=== PATIENT | male | born 1985 | race Caucasian/White ===

== ENCOUNTER 2021-11-21 01:39 | Inpatient (IN) | payer OTHER ==
[~2021-11-21] VITALS: Ht 177.8 cm; Wt 77.5 kg
[2021-11-21 02:19] LABS: HEMOGLOBIN 12.3 gm/dl (14.0-17.5); RED BLOOD COUNT 4.18 M/UL (4.20-5.50); WHITE BLOOD COUNT 8.3 K/UL (4.5-11.0)
[2021-11-21 02:41] LABS: BUN/CREATININE RATIO 13 (0-10)
[2021-11-21 10:41] LABS: HEMOGLOBIN 13.3 gm/dl (14.0-17.5); RED BLOOD COUNT 4.56 M/UL (4.20-5.50)
[2021-11-21 10:42] LABS: WHITE BLOOD COUNT 11.5 K/UL (4.5-11.0)
[2021-11-21 11:16] LABS: BUN/CREATININE RATIO 23 (0-10)
[2021-11-22 05:45] LABS: HEMOGLOBIN 13.4 gm/dl (14.0-17.5); RED BLOOD COUNT 4.53 M/UL (4.20-5.50)
[2021-11-22 06:25] LABS: BUN/CREATININE RATIO 13 (0-10)
[2021-11-22 08:14] LABS: HBSAG SCREEN Negative (Negative); HCV AB <0.1 (0.0-0.9); HEP B CORE AB, TOT Negative (Negative)
[2021-11-22 16:54] LABS: BUN/CREATININE RATIO 8 (0-10)
[2021-11-22 22:43] LABS: BUN/CREATININE RATIO 11 (0-10)
[2021-11-23 05:09] LABS: HEMOGLOBIN 13.8 gm/dl (14.0-17.5); RED BLOOD COUNT 4.69 M/UL (4.20-5.50)
[2021-11-23 05:12] LABS: WHITE BLOOD COUNT 15.3 K/UL (4.5-11.0)
[2021-11-23 05:42] LABS: BUN/CREATININE RATIO 23 (0-10)
[2021-11-24 04:47] LABS: HEMOGLOBIN 15.3 gm/dl (14.0-17.5); RED BLOOD COUNT 5.14 M/UL (4.20-5.50)
[2021-11-24 05:09] LABS: BUN/CREATININE RATIO 31 (0-10)
[2021-11-25 04:45] LABS: HEMOGLOBIN 12.6 gm/dl (14.0-17.5); RED BLOOD COUNT 4.35 M/UL (4.20-5.50); WHITE BLOOD COUNT 13.6 K/UL (4.5-11.0)
[2021-11-25 05:16] LABS: BUN/CREATININE RATIO 32 (0-10)
[2021-11-25 05:23] LABS: HEMOGLOBIN 12.7 gm/dl (14.0-17.5); RED BLOOD COUNT 4.34 M/UL (4.20-5.50); WHITE BLOOD COUNT 14.3 K/UL (4.5-11.0)
[2021-11-25 05:37] LABS: BUN/CREATININE RATIO 33 (0-10); GAMMA GLUTAMYL TRANSPEPTIDASE 160 U/L (7-64)
[2021-11-25 09:33] LABS: HEMOGLOBIN 12.4 gm/dl (14.0-17.5); RED BLOOD COUNT 4.24 M/UL (4.20-5.50); WHITE BLOOD COUNT 14.2 K/UL (4.5-11.0)
[2021-11-25 10:01] LABS: BUN/CREATININE RATIO 39 (0-10); GAMMA GLUTAMYL TRANSPEPTIDASE 162 U/L (7-64)
[2021-11-25 15:45] LABS: HEMOGLOBIN 11.9 gm/dl (14.0-17.5); RED BLOOD COUNT 4.06 M/UL (4.20-5.50); WHITE BLOOD COUNT 12.2 K/UL (4.5-11.0)
[2021-11-25 16:08] LABS: BUN/CREATININE RATIO 37 (0-10); GAMMA GLUTAMYL TRANSPEPTIDASE 164 U/L (7-64)
--- NOTE | 2021-11-25 20:26 | NUR ---
PT GIVEN 500CC 1/[address] HOLBROOK UNDER THE DIRECTION OF CIRA R/T SYSTOLIC BP BELOW 90 AND MAY BELOW 60. PT IS NOT TOLERATING BEING TURNED TO THE RT SIDE AND THIS TIME. CIRA AWARE AND AT BEDSIDE. PT BP INCREASES WHEN PT TURNED OFF OF HE RIGHT SIDE. MOUTH CARE WAS PROVIDED WITH COPIOUS MOUNT OF SPUTUM NTD AT THIS TIME. RESIDUAL 50 BEFORE GIVING 200CC BLOUS DOWN OG TUBE. CIRA REP STATES TO HOLD THE WATER FLUSHES DOWN OG UNTIL THE NEXT SODIUM RECHECK. WILL CONTINUE TO MONITOR 1;1 WITH CIRA PRESENT.
[2021-11-25 21:52] LABS: HEMOGLOBIN 10.6 gm/dl (14.0-17.5); RED BLOOD COUNT 3.64 M/UL (4.20-5.50); WHITE BLOOD COUNT 12.6 K/UL (4.5-11.0)
[2021-11-25 22:26] LABS: BUN/CREATININE RATIO 39 (0-10); GAMMA GLUTAMYL TRANSPEPTIDASE 139 U/L (7-64)
[2021-11-26 05:04] LABS: HEMOGLOBIN 10.2 gm/dl (14.0-17.5); RED BLOOD COUNT 3.4 M/UL (4.20-5.50); WHITE BLOOD COUNT 10.5 K/UL (4.5-11.0)
[2021-11-26 05:19] LABS: BUN/CREATININE RATIO 38 (0-10); GAMMA GLUTAMYL TRANSPEPTIDASE 140 U/L (7-64)
[2021-11-26 09:33] LABS: HEMOGLOBIN 9.7 gm/dl (14.0-17.5); RED BLOOD COUNT 3.36 M/UL (4.20-5.50); WHITE BLOOD COUNT 12.3 K/UL (4.5-11.0)
[2021-11-26 10:08] LABS: BUN/CREATININE RATIO 49 (0-10); GAMMA GLUTAMYL TRANSPEPTIDASE 125 U/L (7-64)
== END 2021-11-26 12:57 | disposition expired | DRG 917 ==
LOC: ER1 01:39 → EDBD 01:39 → CCU 03:58 → CDU 03:58 → CCU 06:40
PROVIDERS: Family Medicine; Internal Medicine; Internal Medicine Critical Care Medicine; Internal Medicine Nephrology; ADMIT Internal Medicine
PROC: 4A10X4Z Monitoring of Central Nervous Electrical Activity, External Approach (ICD-10-PCS; principal; 2021-11-21)
PROC: B24BZZZ Ultrasonography of Heart with Aorta (ICD-10-PCS; 2021-11-21)
PROC: 5A1955Z Respiratory Ventilation, Greater than 96 Consecutive Hours (ICD-10-PCS; 2021-11-21)
PROC: B24BZZZ Ultrasonography of Heart with Aorta (ICD-10-PCS; 2021-11-25)
DX: T43.621A Poisoning by amphetamines, accidental (unintentional), initial encounter (principal); G93.5 Compression of brain; G93.6 Cerebral edema; J69.0 Pneumonitis due to inhalation of food and vomit; J96.01 Acute respiratory failure with hypoxia; K72.00 Acute and subacute hepatic failure without coma; G93.1 Anoxic brain damage, not elsewhere classified; E87.1 Hypo-osmolality and hyponatremia; E87.4 Mixed disorder of acid-base balance; D64.9 Anemia, unspecified; I46.9 Cardiac arrest, cause unspecified; E87.6 Hypokalemia; R73.9 Hyperglycemia, unspecified; R74.01 Elevation of levels of liver transaminase levels; I48.0 Paroxysmal atrial fibrillation; F12.10 Cannabis abuse, uncomplicated; Z79.899 Other long term (current) drug therapy
CPT/HCPCS: ECHO; 0240U; 36415; 36600; 70450; 71045; 71250; 78606; 80048; 80053; 80202; 80307; 81001; 82150; 82248; 82436; 82550; 82553; 82803; 82962; 82977; 83036; 83605; 83690; 83735; 83935; 84100; 84132; 84133; 84295; 84300; 84439; 84443; 84484; 85025; 85027; 85610; 85730; 86704; 86706; 86708; 86803; 87040; 87070; 87081; 87086; 87205; 87340; 93005; 93306; 94002; 94003; 94760; 95819; 96374; 96375; 99285; A9521; C9113; G0480; J0360; J1100; J1644; J1650; J2060; J2250; J2370; J2543; J2597; J2704; J2930; J3010; J3370; J3475; J7030; J7040; J7070